=== PATIENT | female | born 1940 | race Caucasian/White ===

== ENCOUNTER → 2017-03-14 | Outpatient (CLI) | payer MEDICARE, BC ==
--- NOTE | 2017-03-14 12:21 | RAD ---
Lumbar spine, 3 views, 03/14/2017: History: Low back pain radiating into the left leg There is a mild left convexity scoliosis. The lateral view is compromised by patient rotation. There is mild disc space narrowing and scattered marginal spurring at multiple levels. No fracture is identified. There are mild degenerative changes involving the facet joints in the lower lumbar spine. There appears to be slight associated spondylolisthesis at L4-5 due to facet joint arthropathy. Minimal aortic calcific plaquing is present. IMPRESSION: 1. Moderate multilevel degenerative change. 2. No acute bony abnormality is detected.
== END | disposition home or self-care (01) ==
LOC: DXRADRC 11:59
PROVIDERS: ATTEND Nurse Practitioner Family
DX: M47.896 Other spondylosis, lumbar region (principal); M43.16 Spondylolisthesis, lumbar region; M41.86 Other forms of scoliosis, lumbar region; M12.88 Other specific arthropathies, not elsewhere classified, other specified site
CPT/HCPCS: 72100

== ENCOUNTER → 2017-05-20 | Outpatient (CLI) | payer MEDICARE, BC ==
[~2017-05-20] MED LIST: 0.9 % SODIUM CHLORIDE 10 ML VIAL ONE; BUPIVACAINE MPF 0.25% 10 ML VIAL. ONE; DEXAMETHASONE SOD PHOS 4 MG/ML VIAL ONE; IOHEXOL 300 MG/ML 50 ML VIAL. ONE; LIDOCAINE 1% PF 30 ML VIAL. ONE
== END | disposition home or self-care (01) ==
LOC: SURG 12:33
PROVIDERS: ATTEND Anesthesiology
DX: M54.16 Radiculopathy, lumbar region (principal); I10 Essential (primary) hypertension; M19.91 Primary osteoarthritis, unspecified site; E07.9 Disorder of thyroid, unspecified; Z88.2 Allergy status to sulfonamides
CPT/HCPCS: 64483; 64484; J1100; J2001; J3490; Q9967

== ENCOUNTER → 2017-06-17 | Outpatient (CLI) | payer MEDICARE, BC ==
[~2017-06-17] MED LIST changes: -BUPIVACAINE MPF 0.25% 10 ML VIAL. ONE
== END ==
LOC: SURG 12:22
PROVIDERS: ATTEND Anesthesiology
DX: M54.16 Radiculopathy, lumbar region (principal)
CPT/HCPCS: 64483; 64484; J1100; J2001; Q9967

== ENCOUNTER → 2017-07-29 | Outpatient (CLI) | payer MEDICARE, BC ==
[~2017-07-29] MED LIST changes: -0.9 % SODIUM CHLORIDE 10 ML VIAL ONE; +BUPIVACAINE MPF 0.25% 10 ML VIAL. ONE; -DEXAMETHASONE SOD PHOS 4 MG/ML VIAL ONE; -IOHEXOL 300 MG/ML 50 ML VIAL. ONE
== END | disposition home or self-care (01) ==
LOC: SURG 12:42
PROVIDERS: ATTEND Anesthesiology
DX: M47.816 Spondylosis without myelopathy or radiculopathy, lumbar region (principal); I10 Essential (primary) hypertension; M19.90 Unspecified osteoarthritis, unspecified site; E07.9 Disorder of thyroid, unspecified
CPT/HCPCS: 64493; 64494; J2001; J3490

== ENCOUNTER → 2017-09-02 | Outpatient (CLI) | payer MEDICARE, BC ==
[~2017-09-02] MED LIST changes: +IOHEXOL 300 MG/ML 50 ML VIAL. ONE; +methylPREDNISolone ACETATE 40 MG/ML VIAL. ONE
== END | disposition home or self-care (01) ==
LOC: SURG 14:02
PROVIDERS: ATTEND Anesthesiology
DX: M46.1 Sacroiliitis, not elsewhere classified (principal); M54.5 Low back pain; M25.552 Pain in left hip; I10 Essential (primary) hypertension; M19.90 Unspecified osteoarthritis, unspecified site; Z90.710 Acquired absence of both cervix and uterus; Z88.2 Allergy status to sulfonamides
CPT/HCPCS: G0260; J1030; J2001; J3490; Q9967; 27096

== ENCOUNTER → 2017-12-29 | Outpatient (CLI) | payer MEDICARE, BC ==
--- NOTE | 2017-12-29 16:03 | RAD ---
Indication: Acute pain left knee TECHNIQUE: 3 views of the left knee COMPARISON: None FINDINGS: No acute fracture or dislocation. No significant joint compartment space narrowing or productive changes. No suprapatellar effusion. No soft tissue abnormality. IMPRESSION: No acute findings. Electronically signed by: Zhang Ulrich DO (12/29/2017 3:59 PM) [facility]
== END | disposition home or self-care (01) ==
LOC: PMG 14:50
PROVIDERS: ATTEND Physician Assistant Medical
DX: M25.562 Pain in left knee (principal)
CPT/HCPCS: 73562

== ENCOUNTER → 2018-01-08 | Outpatient (CLI) | payer MEDICARE, BC ==
[2018-01-08 09:09] LABS: BASO # 0.1 x10^3/uL (0.0-0.2); BASO % 1 % (0-3); EOS # 0.3 x10^3/uL (0.0-0.7); EOS % 3 % (0-3); HEMATOCRIT 40.7 % (36.0-47.0); HEMOGLOBIN 13.6 g/dL (12.0-15.5); LYMPH # 2.8 x10^3/uL (1.0-4.8); LYMPH % 34 % (24-48); MEAN CORPUSCULAR HEMOGLOBIN 31 pg (25-35); MEAN CORPUSCULAR HGB CONC 33 g/dL (31-37); MEAN CORPUSCULAR VOLUME 94 fL (79-100); MONO # 0.9 x10^3/uL (0.0-1.1); MONO % 11 % (0-9); NEUT # 4.2 x10^3uL (1.8-7.7); NEUT % 51 % (31-73); PLATELET COUNT 375 x10^3/uL (140-400); RED BLOOD COUNT 4.35 x10^6/uL (3.50-5.40); RED CELL DISTRIBUTION WIDTH 13.2 % (11.5-14.5); WHITE BLOOD COUNT 8.3 x10^3/uL (4.0-11.0)
[2018-01-08 09:20] LABS: ALBUMIN 3.5 g/dL (3.4-5.0); CALCIUM 9.5 mg/dL (8.5-10.1); CREATININE 0.8 mg/dL (0.6-1.0); GFR 69.9; TOTAL BILIRUBIN 0.3 mg/dL (0.2-1.0); TOTAL PROTEIN 7.1 g/dL (6.4-8.2)
[2018-01-08 13:48] LABS: FREE T4 1.19 ng/dL (0.76-1.46)
[2018-01-08 13:49] LABS: THYROID STIM HORMONE (TSH) 1.068 uIU/mL (0.358-3.740)
== END | disposition home or self-care (01) ==
LOC: LAB 08:24
PROVIDERS: ATTEND Physician Assistant Medical
DX: M25.562 Pain in left knee (principal); E03.9 Hypothyroidism, unspecified; I10 Essential (primary) hypertension
CPT/HCPCS: 36415; 80053; 80061; 82306; 84439; 84443; 84481; 85025

== ENCOUNTER → 2019-01-27 | Outpatient (CLI) | payer MEDICARE, BC ==
--- NOTE | 2019-01-28 16:23 | RAD ---
DATE: 01/27/2019 EXAM: MAMMO [place] SCREENING BILATERAL HISTORY: Routine screening COMPARISON: 08/04/2015, 08/13/2016 mammographic exams This study was interpreted with the benefit of Computerized Aided Detection (CAD). Breast Density: HETERO The breast parenchyma is heterogenously dense, which could reduce sensitivity of mammography. Breast parenchyma level C. FINDINGS: Minimal benign calcification. No suspicious calcific lesion. No mass or distortion. IMPRESSION: Stable BI-RADS CATEGORY: 1 NEGATIVE RECOMMENDED FOLLOW-UP: 12M 12 MONTH FOLLOW-UP PQRS compliance statement: Patient information was entered into a reminder system with a target due date in one year for the next mammogram. Mammography is a sensitive method for finding small breast cancers, but it does not detect them all and is not a substitute for careful clinical examination. A negative mammogram does not negate a clinically suspicious finding and should not result in delay in biopsying a clinically suspicious abnormality. "Our facility is accredited by the [employer] Mammography Program."
== END | disposition home or self-care (01) ==
LOC: MAMMO 11:07
PROVIDERS: ATTEND Physician Assistant Medical
DX: Z12.31 Encounter for screening mammogram for malignant neoplasm of breast (principal); N64.89 Other specified disorders of breast
CPT/HCPCS: 77063; 77067

== ENCOUNTER → 2019-02-05 | Outpatient (CLI) | payer MEDICARE, BC ==
--- NOTE | 2019-02-05 10:35 | RAD ---
PQRS Compliance statement: One or more of the following individualized dose reduction techniques were utilized for this examination: 1. Automated exposure control. 2. Adjustment of the mA and/or kV according to patient size. 3. Use of iterative reconstruction technique. Indication:Left otalgia and pain in the maxillary region. TECHNIQUE: CT of the maxillofacial bones without IV contrast multiplanar reformats. COMPARISON: None FINDINGS: The visualized orbits are within normal limits. Noncontrast appearance of the nasopharynx, oropharynx and hypopharynx is within normal limits. The noncontrast appearance of the bilateral submandibular glands, parotid glands is within normal limits. No pathologically enlarged cervical lymph nodes seen. Shotty lymph nodes, nonspecific. Hypoplastic bilateral frontal sinus. The rest of the paranasal sinuses and mastoid air cells are clear. Bilateral external auditory canals and inner ear cavities are within normal limits. Bilateral temporomandibular joints and mandible are within normal limits. Visualized upper cervical spine is within normal limits. Noncontrast appearance of the suprahyoid neck soft tissue is within normal limits. IMPRESSION: No acute findings on this noncontrast CT specifically no sinus disease or left external auditory canal abnormality.. Electronically signed by: Zhang Ulrich DO (02/05/2019 10:32 AM) [facility]
== END | disposition home or self-care (01) ==
LOC: CT 09:58
PROVIDERS: ATTEND Physician Assistant Medical
DX: H92.02 Otalgia, left ear (principal)
CPT/HCPCS: 70486

== ENCOUNTER → 2019-06-24 | Outpatient (CLI) | payer MEDICARE, BC ==
--- NOTE | 2019-06-24 13:42 | RAD ---
EXAM: Abdomen and pelvis CT without intravenous contrast. HISTORY: Abdominal and flank pain. TECHNIQUE: Computed tomographic images of the abdomen and pelvis were obtained without contrast. Multiplanar reformatting was performed. *One or more of the following individualized dose reduction techniques were utilized for this examination: 1. Automated exposure control. 2. Adjustment of the mA and/or kV according to patient size. 3. Use of iterative reconstruction technique. COMPARISON: None. FINDINGS: Evaluation of the lower thorax demonstrates no infiltrate or pleural effusion. There is a 1.7 cm hypodense lesion within the superior right hepatic lobe. There is a 1.5 cm ill-defined hypodense lesion within the inferior right hepatic lobe. The gallbladder, pancreas, spleen and adrenal glands are unremarkable. There is a 9 mm hyperdense partially exophytic lesion along the anterior mid zone of the right kidney, likely a hemorrhagic cyst. There is a 1.7 cm right renal parapelvic cyst. There is no hydronephrosis or nephrolithiasis. There is no bowel obstruction. There is distal colonic diverticulosis. The bladder is nearly empty. The uterus is surgically absent. The left ovary is normal in appearance. The right ovary is not clearly seen. There are nonspecific mesenteric and retroperitoneal lymph nodes. There is no lymphadenopathy. The aorta is normal in caliber. There is scoliosis and hyperlordosis. There is mild listhesis at multiple levels. There is severe degenerative change primarily at L3-L4 and L5-S1. There is slight lumbarization of the S1 segment. IMPRESSION: 1. No acute abdominal or pelvic finding. 2. Distal colonic diverticulosis. 3. 1.7 cm right renal cyst. There is also a 10 mm hyperdense lesion within the right kidney which may be a hemorrhagic cyst. Renal sonography may be useful to confirm benignity. 4. 1.5 cm and 1.7 cm hypodense lesions within the liver. These are indeterminant on noncontrast images. Liver sonography or liver protocol MRI or CT is recommended for characterization. Electronically signed by: Jessica Shafer MD (06/24/2019 1:39 PM) [place] [id number]
== END | disposition home or self-care (01) ==
LOC: CT 09:06
PROVIDERS: ATTEND Physician Assistant Medical
DX: R10.2 Pelvic and perineal pain (principal)
CPT/HCPCS: 74176

== ENCOUNTER → 2019-09-09 | Outpatient (CLI) | payer MEDICARE, BC ==
--- NOTE | 2019-09-10 08:38 | RAD ---
Examination: HIP BILATERAL WITH PELVIS History: Bilateral hip pain Comparison/Correlation: 06/24/2019 CT abdomen and pelvis without contrast Findings: Frontal view of pelvis was obtained. Following the lateral view of the right hip and frog leg lateral view of the left hip were obtained. Disc space narrowing at the L4-5 and L5-S1 levels noted. Mild left lateral subluxation of L4 vertebral body in relation L5 noted. Sacroiliac joints are symmetric and unremarkable for the patient's age. Hip joints are symmetric and unremarkable for the patient's age. Degenerative changes of the symphysis pubis are noted. No acute fracture or bone destruction. Pelvic calcifications which probably represent phleboliths noted. Impression: No suspicious process. Consider further evaluation if occult process is a persistent concern. Electronically signed by: Augustine Perdomo MD (09/10/2019 8:35 AM) [facility]
== END | disposition home or self-care (01) ==
LOC: DXRAD 14:24
PROVIDERS: ATTEND Family Medicine
DX: S33.140A Subluxation of L4/L5 lumbar vertebra, initial encounter (principal); M48.07 Spinal stenosis, lumbosacral region; X58.XXXA Exposure to other specified factors, initial encounter; Y93.89 Activity, other specified; Y92.89 Other specified places as the place of occurrence of the external cause; Y99.8 Other external cause status
CPT/HCPCS: 73521

== ENCOUNTER → 2020-01-31 | Outpatient (CLI) | payer MEDICARE, BC ==
--- NOTE | 2020-01-31 17:23 | RAD ---
BILATERAL SCREENING MAMMOGRAM, 3-D History: Routine screening. Comparison: 01/27/2019, 08/13/2016, 08/04/2015. Technique: MLO and CC digital tomosynthesis (3D) images obtained. Radiologist reviewed these images on dedicated workstation. Findings: Breast Tissue Density C : The breasts are heterogeneously dense, which may obscure small masses. There are no dominant masses, suspicious microcalcifications, or architectural distortion. IMPRESSION: No mammographic evidence of malignancy. Recommend routine screening. BI-RADS category 1: Negative. The images were reviewed with computer-aided detection. Patient information is entered into reminder system with a target due date for the next screening mammogram. Mammography is the most sensitive method for finding small breast cancers, but it does not detect them all and is not a substitute for careful clinical examination. A negative mammogram does not negate a clinically suspicious finding and should not result in delay in biopsying a clinically suspicious abnormality. "Our facility is accredited by the [employer] Mammography Program." Electronically signed by: Augustine Perdomo MD (01/31/2020 5:20 PM) [facility]
== END ==
LOC: MAMMO 10:54
PROVIDERS: ATTEND Family Medicine
DX: Z12.31 Encounter for screening mammogram for malignant neoplasm of breast (principal)
CPT/HCPCS: 77063; 77067

== ENCOUNTER 2020-11-12 17:42 | Emergency (ER) | payer MEDICARE, BC ==
[~2020-11-12] VITALS: Ht 165.1 cm; Wt 86.7 kg
--- NOTE | 2020-11-12 18:28 | PHYS DOC ---
General Adult EDM: Chief Complaint: LOWER EXTREMITY SWELLING HPI: HPI: 72-year-old female presents with concerns of right lower leg swelling. The patient has had the swelling for about a week. It started 1 to 2 days after her second Covid vaccination. She got the maternal vaccine. She has noticed some more swelling in the right ankle versus the left. This is unusual for her. She has a little bit of pain in this leg but it is on the anterior aspect of the posterior. She does occasionally limp due to the discomfort. Her family thought she should get it checked out to make sure she does not have a blood clot. Review of Systems: Review of Systems: Constitutional: Denies fever or chills Eyes: Denies change in visual acuity HENT: Denies nasal congestion or sore throat Respiratory: Denies cough or shortness of breath Cardiovascular: Denies chest pain or edema GI: Denies abdominal pain, nausea, vomiting, bloody stools or diarrhea : Denies dysuria Musculoskeletal: right lower extremity tenderness anterior tibia, ankle swelling. Integument: Denies rash Neurologic: Denies headache, focal weakness or sensory changes Endocrine: Denies polyuria or polydipsia Lymphatic: Denies swollen glands Psychiatric: Denies depression or anxiety Physical Exam: PE: Constitutional: Well developed, well nourished, no acute distress, non-toxic appearance. [] HENT: Normocephalic, atraumatic, bilateral external ears normal, oropharynx moist, no oral exudates, nose normal. [] Eyes: PERRLA, EOMI, conjunctiva normal, no discharge. [] Neck: Normal range of motion, no tenderness, supple, no stridor. [] Cardiovascular: Heart rate regular rhythm, no murmur [] Lungs & Thorax: Bilateral breath sounds clear to auscultation [] Abdomen: Bowel sounds normal, soft, no tenderness, no masses, no pulsatile masses. [] Skin: Warm, dry, no erythema, no rash. [] Back: No tenderness, no CVA tenderness. [] Extremities: No tenderness, no cyanosis, no clubbing. Mild swelling of the right ankle, no surrounding erythema or warmth. No deformity. [] Neurologic: Alert and oriented X 3, normal motor function, normal sensory function, no focal deficits noted. [] Psychologic: Affect normal, judgement normal, mood normal. [] EKG: EKG: [] Radiology/Procedures: Radiology/Procedures: [] Impressions: EXAMINATION: US DPLX VENOUS EXTREMITY LOWER RT (LOWER EXTREMITY VENOUS ULTRASOUND) CLINICAL HISTORY: Right ankle swelling, pain, no trauma TECHNIQUE: Sonographic grayscale images obtained of the right lower extremity deep venous system with color flow Doppler, compression, and augmentation techniques as indicated. Images obtained and stored in a permanent archive. COMPARISON: None FINDINGS: No evidence of absent flow or incompressibility within the common femoral vein, femoral vein, or popliteal vein. Visualized calf veins appear patent on limited evaluation. IMPRESSION: No evidence of right lower extremity DVT. Electronically signed by: Sha Sanderson DO (11/12/2020 7:44 PM) [facility] DICTATED AND SIGNED BY: SHA SANDERSON DO DATE: 11/12/201942 CC: MARIA GAGE DO; FILEMON GRAHAM ~MTH0 0 Heart Score: C/O Chest Pain: No Risk Factors: Risk Factors: DM, Current or recent (<one month) smoker, HTN, HLP, family history of CAD, obesity. Risk Scores: Score 0 - 3: 2.5% MACE over next 6 weeks - Discharge Home Score 4 - 6: 20.3% MACE over next 6 weeks - Admit for Clinical Observation Score 7 - 10: 72.7% MACE over next 6 weeks - Early Invasive Strategies Course & Med Decision Making: Course & Med Decision Making Pertinent Labs and Imaging studies reviewed. (See chart for details) The patient's labs are unremarkable except for an elevated BUN. Patient appears a little dehydrated. Her lower extremity ultrasound is negative for DVT. The swelling could be a side effect of her Covid vaccine or just some mild transient edema. I recommended compression socks and follow-up with her primary physician. She is stable for discharge at this time. [] Dragon Disclaimer: Dragon Disclaimer: This electronic medical record was generated, in whole or in part, using a voice recognition dictation system. Departure Departure: Impression: Primary Impression: Edema of right ankle Disposition: HOME / SELF CARE / HOMELESS Condition: STABLE Referrals: FILEMON GRAHAM (PCP) Patient Instructions: Edema, [id number] Additional Instructions: You could try wearing compression socks for a few days to see if this helps with your edema. Please follow-up with your primary care physician as needed. MARIA GAGE DO Nov 12, 2020 18:28
[2020-11-12 18:58] LABS: BASO # 0.1 x10^3/uL (0.0-0.2); BASO % 2 % (0-3); EOS # 0.3 x10^3/uL (0.0-0.7); EOS % 4 % (0-3); HEMOGLOBIN 11.1 g/dL (12.0-15.5); LYMPH # 2.9 x10^3/uL (1.0-4.8); LYMPH % 35 % (24-48); MEAN CORPUSCULAR HEMOGLOBIN 31 pg (25-35); MEAN CORPUSCULAR HGB CONC 33 g/dL (31-37); MEAN CORPUSCULAR VOLUME 96 fL (79-100); MONO % 12 % (0-9); NEUT # 3.9 x10^3uL (1.8-7.7); NEUT % 47 % (31-73); PLATELET COUNT 317 x10^3/uL (140-400); RED BLOOD COUNT 3.53 x10^6/uL (3.50-5.40); WHITE BLOOD COUNT 8.2 x10^3/uL (4.0-11.0)
[2020-11-12 19:06] LABS: CALCIUM 9.3 mg/dL (8.5-10.1); CREATININE 0.7 mg/dL (0.6-1.0); GFR 80.9
[2020-11-12 19:12] LABS: ALBUMIN 3.1 g/dL (3.4-5.0); ALBUMIN/GLOBULIN RATIO 0.9 (1.0-1.7); TOTAL BILIRUBIN 0.1 mg/dL (0.2-1.0); TOTAL PROTEIN 6.6 g/dL (6.4-8.2)
--- NOTE | 2020-11-12 19:46 | RAD ---
EXAMINATION: US DPLX VENOUS EXTREMITY LOWER RT (LOWER EXTREMITY VENOUS ULTRASOUND) CLINICAL HISTORY: Right ankle swelling, pain, no trauma TECHNIQUE: Sonographic grayscale images obtained of the right lower extremity deep venous system with color flow Doppler, compression, and augmentation techniques as indicated. Images obtained and stor ed in a permanent archive. COMPARISON: None FINDINGS: No evidence of absent flow or incompressibility within the common femoral vein, femoral vein, or popl iteal vein. Visualized calf veins appear patent on limited evaluation. IMPRESSION: No evidence of right lower extremity DVT. Electronically signed by: Sha Carmichael DO (11/12/2020 7:44 PM) [facility]
[2020-11-12 20:38] VITALS: BP 154/74
== END 2020-11-12 20:39 | disposition home or self-care (01) ==
LOC: ER 17:42
DX: R60.0 Localized edema (principal)
CPT/HCPCS: 36415; 80053; 85025; 93971; 99284

== ENCOUNTER → 2021-02-01 | Outpatient (CLI) | payer MEDICARE, BC ==
--- NOTE | 2021-02-01 15:01 | RAD ---
EXAMINATION: MG BILAT SCREEN+NADEEM CLINICAL HISTORY: Screening TECHNIQUE: Digital craniocaudal and mediolateral oblique views of the bilateral breasts obtained with 3-D tomosynthesis. COMPARISON: 01/31/2020, 01/27/2019, 08/13/2016 BREAST COMPOSITION: There are scattered areas of fibroglandular density. FINDINGS: No evidence of suspicious mass, calcifications, or areas of architectural distortion. IMPRESSION: No mammographic evidence of malignancy. BI-RADS ASSESSMENT: Category 1: Negative RECOMMENDATION: Return for routine bilateral screening mammogram in one year. PQRS compliance statement - Patient information was entered into a reminder system with a target due date for the next mammogram. "Our facility is accredited by the [employer] Mammography Program." Electronically signed by: Sha Carmichael DO (02/01/2021 2:59 PM) [email or web address]
== END ==
LOC: MAMMO 10:28
PROVIDERS: ATTEND Physician Assistant Medical
DX: Z12.31 Encounter for screening mammogram for malignant neoplasm of breast (principal)
CPT/HCPCS: 77063; 77067

== ENCOUNTER → 2021-03-06 | Outpatient (CLI) | payer MEDICARE, BC ==
--- NOTE | 2021-03-06 16:45 | RAD ---
EXAM: Dual energy x-ray absorptiometry (DEXA). HISTORY: Postmenopausal. Bone limits evaluation. COMPARISON: 05/29/2016. TECHNIQUE: Dual energy x-ray absorptiometry of the lumbar spine and right hip was performed. Calcula tion of bone mineral density based on standard deviations above or below the expected young adult nor mal value T-score) was completed. FINDINGS: LUMBAR SPINE: The AVG BMD OF the L1-L4 region = 1.159 gm/cm2, T-score = -0.2, Z-score = 1.2. Findings are consistent with normal BMD. Significant degenerative changes are noted in the lumbar spine. This can artificially elevate the ca lculation of bone density. Femoral Necks: The BMD of the right femoral neck = 665 mg/cm2, T-score = -2.4, Z-score = -0.8. The Findings are consistent with osteopenia. Comparison to the previous DEXA study: Lumbar Spine: Compared to the previous BMD value of 1.159 today's value is not significantly changed. Right femoral neck: Compared to the previous BMD value of 774 today's value is significantly decreased. Electronically signed by: Scar Sequeira MD (03/06/2021 4:43 PM) [email or web address]
== END ==
LOC: DXRAD 09:58
PROVIDERS: ATTEND Physician Assistant Medical
DX: M85.89 Other specified disorders of bone density and structure, multiple sites (principal); M47.816 Spondylosis without myelopathy or radiculopathy, lumbar region; N95.9 Unspecified menopausal and perimenopausal disorder
CPT/HCPCS: 77080